=== PATIENT | male | born 1965 | race African-American/Black ===

== ENCOUNTER 2017-09-06 04:06 | Emergency (ER) | payer SELFPAY ==
[2017-09-06] MEDS ORDERED: Ibuprofen 800 MG TAB ONE (04:30)
[2017-09-06 04:41] LABS: #Lymphocytes 0.5 thou/uL (1.20-3.40); #Monocytes 0.7 thou/uL (0.11-0.59); #Neutrophils 6.9 thou/uL (1.40-6.50); %Basophils 0.4 % (0.0-1.0); %Eosinophils 0.5 % (0.0-10.0); %Lymphocytes 6.7 % (21.0-51.0); %Monocytes 8.4 % (0.0-10.0); %Neutrophils 84.1 % (42.0-75.0); Hemoglobin 14.4 g/dL (14.0-18.0); Mean Corpuscular HGB CONC 34.1 g/dL (32.0-36.0); Mean Corpuscular Hemoglobin 34.5 pg (27.0-31.0); Mean Platelet Volume 6.9 fL (7.4-10.4); Platelet Count 203 thou/uL (130-400); RBC Distribution Width 11.1 % (11.5-14.5); Red Blood Cell (RBC) Count 4.16 mill/uL (4.70-6.10); White Blood Cell (WBC) Count 8.2 thou/uL (4.8-10.8)
[2017-09-06 05:19] LABS: ALT (SGPT) 13 U/L (8-55); AST (SGOT) 17 U/L (5-34); Albumin 4.1 g/dL (3.5-5.0); Alkaline Phosphatase 65 U/L (40-150); Anion Gap 13 mmol/L (10-20); BUN (Urea Nitrogen) 16 mg/dL (8.4-25.7); Bilirubin, Total 0.8 mg/dL (0.2-1.2); Calc. Creatinine Clearance 0 mL/min (70-130); Calcium 9.1 mg/dL (7.8-10.44); Carbon Dioxide 22 mmol/L (22-29); Chloride 105 mmol/L (98-107); Estimated GFR-MDRD Greater than 90; Glucose 115 mg/dL (70-105); Potassium 3.8 mmol/L (3.5-5.1); Protein, Total 7.1 g/dL (6.0-8.3); Sodium 136 mmol/L (136-145)
[2017-09-06 05:24] LABS: CKMB 1.1 ng/mL (0-6.6); Troponin I 0.025 ng/mL (< 0.028)
--- NOTE | 2017-09-06 08:18 | RAD ---
PORTABLE CHEST ONE VIEW: 09/06/2017 at 4:43 a.m. HISTORY: Chest pain. FINDINGS: Comparison is made with the exam of 04/08/2015. The heart size is normal. The lungs are expanded without focal areas of consolidation, pneumothorax, or pleural effusions. No degenerative changes in the spine. IMPRESSION: No radiographic evidence of acute cardiopulmonary process. POS: [facility]
--- NOTE | 2017-09-06 08:28 | RAD ---
LEFT WRIST 3 VIEWS: Date: 09/06/17 HISTORY: 52-year-old female with history of injury to left wrist after being pecked by a chicken and developed a fever up to 103. FINDINGS: There is degenerative change, particularly involving the distal radial ulnar joint. There is abnormal widening of the scapholunate space, evidence for scapholunate disassociation secondary to scapholuna te ligament injury. No acute fracture or dislocation. No overt foreign body. 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 No fo reign body. No acute fracture or dislocation. POS: [facility]
== END 2017-09-06 07:25 | disposition home or self-care (01) ==
LOC: ERS 04:06
DX: R07.9 Chest pain, unspecified (principal); B34.9 Viral infection, unspecified
CPT/HCPCS: 36415; 71045; 80053; 82553; 84484; 85025; 93005; 96360; 99406

== ENCOUNTER 2019-10-07 16:57 | Observation (INO) | payer SELFPAY ==
[2019-10-07] MEDS ORDERED: Lorazepam 2 MG/ML VIAL ONE (17:20)
[2019-10-07] MEDS ORDERED: Naloxone HCl 2 mg/2 ml Syringe ONE (17:20)
[2019-10-07 17:28] LABS: Hemoglobin 16.5 g/dL (14.0-18.0); Mean Corpuscular HGB CONC 35.4 g/dL (32.0-36.0); Mean Platelet Volume 7.2 fL (7.4-10.4); Platelet Count 233 thou/uL (130-400); RBC Distribution Width 11.2 % (11.5-14.5); Red Blood Cell (RBC) Count 4.59 mill/uL (4.70-6.10); White Blood Cell (WBC) Count 7.4 thou/uL (4.8-10.8)
[2019-10-07 17:43] LABS: Acetaminophen Less than 6.0 mcg/mL (10.0-30.0); Alcohol 104 mg/dL (Less than 10); Salicylate Less than 8.0 mg/dL (15.0-30.0)
[2019-10-07 17:44] LABS: ALT (SGPT) 18 U/L (8-55); AST (SGOT) 31 U/L (5-34); Albumin 4.4 g/dL (3.5-5.0); Alkaline Phosphatase 81 U/L (40-110); Anion Gap 15 mmol/L (10-20); BUN (Urea Nitrogen) 10 mg/dL (8.4-25.7); Bilirubin, Total 1.1 mg/dL (0.2-1.2); Calc. Creatinine Clearance 0 mL/min (70-130); Calcium 9.3 mg/dL (7.8-10.44); Carbon Dioxide 24 mmol/L (22-29); Chloride 99 mmol/L (98-107); Estimated GFR-MDRD 72; Glucose 114 mg/dL (70-105); Lipase 16 U/L (8-78); Potassium 3.2 mmol/L (3.5-5.1); Protein, Total 7.4 g/dL (6.0-8.3); Sodium 135 mmol/L (136-145)
[2019-10-07 17:50] LABS: Band 1 % (5-11); Eosinophils 1 % (0-10); Lymphocytes 39 % (21-51); MDiff Complete? YES; Monocytes 6 % (0-10); Neutrophil 49 % (42-75); Platelet Morphology Comment Appears Adequate; RBC Morphology Normal; Reactive Lymphocytes 3 % (0-10)
[2019-10-07 18:06] LABS: CKMB 4.4 ng/mL (0-6.6)
[2019-10-07 18:18] LABS: Bilirubin Negative (Negative); Blood, Urine Negative (Negative); Clarity Clear (Clear); Glucose, Urine (Dipstick) Normal (Negative); Leukocyte Negative Leu/uL (Negative); Nitrite Negative (Negative); Protein, Urine (Dipstick) Negative (Neg-Trace); Urobilinogen Normal mg/dL (Less than 2)
[2019-10-07 18:31] LABS: Cocaine Metabolite Screen Detected (NotDetected); Medtox Reader # READER 1
[2019-10-07 18:32] LABS: Amphetamine Not Detected (NotDetected); Barbiturates Screen Not Detected (NotDetected); Benzodiazepine Screen Not Detected (NotDetected); Medtox Control Line Valid? VALID (VALID); Methadone Not Detected (NotDetected); Methamphetamine Not Detected (NotDetected); Opiate Screen Not Detected (NotDetected); Oxycodone Screen Not Detected (NotDetected); Phencyclidine (PCP) Not Detected (NotDetected); THC/Cannabinoid Screen Not Detected (NotDetected); Tricyclic Screen Not Detected (NotDetected)
--- NOTE | 2019-10-07 18:38 | CT ---
CT BRAIN NONCONTRAST: DATE: 10/07/2019 HISTORY: 54-year-old male with altered mental status FINDINGS: There is no evidence of acute intra-axial or extra-axial hemorrhage. There is no midline shift or any other mass effect. There is no extra-axial fluid collection. There is no evidence of obstructive hydrocephalus. Calvarium is intact. IMPRESSION: No acute intracranial findings.
--- NOTE | 2019-10-07 18:43 | RAD ---
Chest AP view INDICATION: Altered mental status and history of allergic reaction COMPARISON: September 06, 2017 FINDINGS: Lungs: The lungs are clear Cardiac silhouette: Stable mild cardiomegaly Pulmonary vasculature: Normal Pleural spaces: No pleural effusion or pneumothorax is demonstrated. Upper abdomen: No abnormality seen. Osseous structures: No acute osseous abnormality. Additional findings: None. IMPRESSION: Stable mild cardiomegaly. No acute abnormality.
[2019-10-07] MEDS ORDERED: Acetaminophen 650 MG Suppository PR PRN (19:37)
[2019-10-07] MEDS ORDERED: Ondansetron PF 4 MG/2 ML Vial IVP PRN (19:37)
[2019-10-07] MEDS ORDERED: Labetalol HCl 100 MG/20 ML VIAL SLOW IVP PRN (19:41)
[2019-10-07] MEDS ORDERED: Lorazepam 2 MG/ML VIAL SLOW IVP PRN (19:42)
[2019-10-07] MEDS ORDERED: Aspirin 300 MG Suppository ONE (19:59)
[2019-10-07 20:54] LABS: Troponin I 0.044 ng/mL (< 0.028)
[2019-10-07 21:31] VITALS: BMI 22.2
[2019-10-07] MEDS: Multivitamins, Adult 10 ML, Folic Acid 1 MG, Thiamine HCl 100 MG in Dextrose 5 %-0.45 %... IV SCH (22:04)
--- NOTE | 2019-10-07 23:11 | HP ---
CHIEF COMPLAINT: Altered mentation. HISTORY OF PRESENT ILLNESS: A 54-year-old male with a history of asthma, presenting with altered mentation. According to his mother, the patient went with his friends for barbecue. He came home and after a while, he mentioned to his mother that he is not able to see clearly and he slumped, asked her to call 911. The EMS was called, arrived at this site, felt that he had some reaction "anaphylactic reaction type " given albuterol, epi, some facial swelling and shortness of breath, but they did not notice any rash, stridor, or wheezing. On arrival to the ER, patient was still somnolent. His vitals remained stable. His screening evaluation with CT head is negative. Labs are quite unremarkable. UDS positive for cocaine and blood alcohol level of 104. No aspirin or Tylenol on board. He had mild hypokalemia. Based on his mother, he used crack cocaine, but does not snort cocaine or use injection. He does not use any other drugs per mother. REVIEW OF SYSTEMS: Not obtainable. ALLERGIES: HE IS ALLERGIC TO BUTORPHANOL TARTRATE. PAST MEDICAL HISTORY: Asthma. MEDICATIONS: 1. Thiamine 100 mg daily. 2. Protonix 40 mg daily. 3. Meclizine as needed. 4. Folic acid 1 mg daily. 5. Albuterol 2 puffs q.4 hours p.r.n. 6. Beclomethasone 80 mcg (QVAR) 3 puffs twice a day. SOCIAL HISTORY: The patient smokes daily cigarettes. Alcohol use daily. Often , he uses crack cocaine. PHYSICAL EXAMINATION: VITAL SIGNS: He is afebrile, normotensive. His vital signs are stable. GENERAL: He appears somnolent. He has a sinus rhythm on the shelter monitor. He is actually snoring deeply. The deep palpation still not able to wake him up. His mother states that he is a heavy sleeper, hard to wake him up even under normal condition. HEENT: His left pupil is 3 mm dilated versus 2 mm in the right pupil. CARDIOVASCULAR: Regular rate and rhythm without murmurs, rubs, or gallops. LUNGS: Clear to auscultation bilaterally without wheezing, rales, or rhonchi. ABDOMEN: Soft, nontender, nondistended. Good bowel sounds. EXTREMITIES: No pitting edema. No rash. I did not appreciate any facial swelling. NEUROLOGIC: He is only responding for a very deep sternal rub. LABORATORY DATA: CBC in the normal range. Chemistry panel, potassium 3.2. Other than that, his CMP in the normal range. TSH 0.5, lipase 16. Troponin 0.03. CT head negative. IMPRESSION AND PLAN: A 54-year-old male presenting with, 1. Metabolic encephalopathy possibly secondary to intoxication. 2. Cocaine abuse. 3. Alcohol intoxication. 4. I believe his mentation changes probably multifactorial with both alcohol as well as cocaine. His vitals are stable. He does not have any elevated blood pressure and I believe his troponin probably reflective of cocaine use. We will monitor him closely for now. Consideration for lumbar puncture, he is on the low threshold currently. However, if clinical condition changes, we will consider doing the lumbar puncture. 5. Mainly supportive measures with a banana bag, potassium supplements. Labetalol IV p.r.n. if his blood pressure is systolic above 180. 6. Rest of the management based on the clinical course. Job ID: [id number] [facility]PITALAury
[2019-10-08] LABS: Troponin I 0.034 ng/mL (< 0.028)
[2019-10-08 04:39] LABS: #Lymphocytes 0.5 thou/uL (1.20-3.40); #Monocytes 0.1 thou/uL (0.11-0.59); #Neutrophils 3.9 thou/uL (1.40-6.50); %Basophils 0.3 % (0.0-1.0); %Eosinophils 0.1 % (0.0-10.0); %Lymphocytes 11.9 % (21.0-51.0); %Monocytes 1.2 % (0.0-10.0); %Neutrophils 86.5 % (42.0-75.0); Hemoglobin 15.3 g/dL (14.0-18.0); Mean Corpuscular HGB CONC 35.3 g/dL (32.0-36.0); Mean Corpuscular Hemoglobin 35.7 pg (27.0-31.0); Mean Platelet Volume 7.2 fL (7.4-10.4); Platelet Count 185 thou/uL (130-400); RBC Distribution Width 11.1 % (11.5-14.5); Red Blood Cell (RBC) Count 4.28 mill/uL (4.70-6.10); White Blood Cell (WBC) Count 4.5 thou/uL (4.8-10.8)
[2019-10-08 04:57] LABS: Anion Gap 12 mmol/L (10-20); BUN (Urea Nitrogen) 12 mg/dL (8.4-25.7); Calc. Creatinine Clearance 89 mL/min (70-130); Calcium 8.8 mg/dL (7.8-10.44); Carbon Dioxide 23 mmol/L (22-29); Chloride 104 mmol/L (98-107); Estimated GFR-MDRD Greater than 90; Glucose 163 mg/dL (70-105); Potassium 4.5 mmol/L (3.5-5.1); Sodium 134 mmol/L (136-145)
[2019-10-08] MEDS: Acetaminophen 325 MG TAB PO PRN (10:50)
[2019-10-08] MEDS ORDERED: Aspirin Chewable 81 MG TAB PO SCH (11:45)
--- NOTE | 2019-10-08 14:02 | PDOC.HOSPP ---
- Subjective Encounter Date: 10/08/19 Encounter Time: 10:45 Subjective: he is more awake and conversing and states that his right side weak; mom at bedside. had his pO intake this am. - Objective Vital Signs & Weight: Vital Signs (12 hours) Temp Pulse Resp BP BP Pulse Ox 10/08/19 11:55 65 18 115/56 L 92 L 10/08/19 07:46 97.5 F L 71 16 138/72 92 L 10/08/19 04:26 98.4 F 80 16 123/62 94 L Weight Weight 137 lb 12.8 oz I&O: 10/07/19 10/08/19 10/09/19 06:59 06:59 06:59 Intake Total 1037 Balance 1037 Result Diagrams: 10/08/19 04:23 10/08/19 04:23 Hospitalist ROS - Medication Medications: Active Medications Generic Name Dose Route Start Last Admin Trade Name Freq PRN Reason Stop Dose Admin Acetaminophen 650 mg 10/07/19 19:37 10/08/19 10:50 Tylenol PO 650 mg Q4H PRN Administration Headache/Fever/Mild Pain (1-3) Multivitamins 10 ml/ Folic 1,011.2 mls @ 100 mls/hr 10/07/19 22:00 10/07/19 22:04 Acid 1 mg/ Thiamine HCl 100 mg IV 10/10/19 08:07 1,011.2 mls / Dextrose/Sodium Chloride Q24HR@2200 JOHN Administration - Exam General Appearance: NAD, awake alert Eye: PERRL ENT: normocephalic atraumatic Neck: supple Heart: RRR Respiratory: CTAB, normal chest expansion Gastrointestinal: soft, normal bowel sounds Neurological: cranial nerve grossly intact Neurological - other findings: right arm -- he able to lift but not above head, 4/5 RUE&RLE vs. Left 5/5 Hosp A/P - Plan Toxic metabolic encephlaopathy -poss drug induced -resolved Cocaine abuse Alcohol intoxication Right side weakness -very mild -may be d/t stilll lingering toxic effect of illicit drugs vs.. TIA vs..stroke - Ct head neg - getting MRI and echo -PT consult placed.
[2019-10-08 14:49] LABS: Cardiac Risk 3.2 (Less than 4.5)
[2019-10-08] MEDS ORDERED: Magnevist 469MG/ML 20 ML VIAL ONE ×2 (15:02)
--- NOTE | 2019-10-08 16:17 | MRI ---
MR angiogram neck without and with gadolinium contrast HISTORY: Right-sided weakness. Vascular disease. FINDINGS: There is bovine origin of the great vessels at the aortic arch with good flow into each car otid and vertebral system. Each vertebral and carotid artery is widely patent. No focal plaque evident. Each carotid bifurcation has a normal appearance. IMPRESSION: Normal exam. No evidence of significant stenosis or plaque.
--- NOTE | 2019-10-08 16:24 | MRI ---
MRI brain without and with gadolinium contrast HISTORY: Right-sided weakness. FINDINGS: There is no evidence of acute intracranial hemorrhage or infarct. The ventricles appear nor mal in size, shape and position. There is no mass effect, shift midline structures, or abnormal areas of contrast enhancement. IMPRESSION: No acute intracranial abnormalities are demonstrated.
--- NOTE | 2019-10-08 17:15 | MRI ---
MRA HEAD NONCONTRAST: DATE: 10-08-2019 HISTORY: 54-year-old male with right upper extremity weakness. TECHNIQUE: 3D [id number] MRA acquired in multiple axial slabs through the [place]. Source images an d 3D MIP reconstructions evaluated. FINDINGS: Please note that an MRA of the head is considered incomplete without an accompanying standard MRI of the brain. M1 segments of bilateral MCAs, A1 and A2 segments of bilateral ACAs, bilateral intracranial vertebral s, basilar, bilateral P1 and P2 segments of manager operations research, bilateral superior cerebellasr, and bilateral PICA' s, demonstrate no high grade short segment focal stenosis or occlusion. No aneurysm larger than 3 mm identified. IMPRESSION: Negative. POS: [facility]
[2019-10-08] MEDS: Multivitamins, Adult 10 ML, Folic Acid 1 MG, Thiamine HCl 100 MG in Dextrose 5 %-0.45 %... IV SCH (21:30)
[2019-10-08] MEDS: Atorvastatin Calcium 20 MG TAB PO SCH (21:30)
[2019-10-09] MEDS: Aspirin Chewable 81 MG TAB PO SCH (08:53)
--- NOTE | 2019-10-09 13:18 | PDOC.HOSPP ---
- Subjective Encounter Date: 10/09/19 Encounter Time: 10:50 Subjective: pt still not actively conversing, states because he just had breakfast, he is taking a nap. later on pt saying stomach hurts and pain medication. he feels he is still weak on the right side and wants rehab. talk to CM and will place PT consult. he is uninsured, not able to get into rehab as inpt. - Objective Vital Signs & Weight: Vital Signs (12 hours) Temp Pulse Resp BP BP Pulse Ox 10/09/19 11:17 98.1 F 65 14 114/54 L 97 10/09/19 07:55 97.6 F 75 14 118/61 96 10/09/19 03:22 98.8 F 61 16 119/63 97 Weight Weight 137 lb 12.8 oz I&O: 10/08/19 10/09/19 10/10/19 06:59 06:59 06:59 Intake Total 1037 980 Balance 1037 980 Result Diagrams: 10/08/19 04:23 10/08/19 04:23 Hospitalist ROS - Medication Medications: Active Medications Generic Name Dose Route Start Last Admin Trade Name Freq PRN Reason Stop Dose Admin Acetaminophen 650 mg 10/07/19 19:37 10/08/19 10:50 Tylenol PO 650 mg Q4H PRN Administration Headache/Fever/Mild Pain (1-3) Aspirin 81 mg 10/09/19 09:00 10/09/19 08:53 Aspirin Chewable PO 81 mg DAILY JOHN Administration Atorvastatin Calcium 20 mg 10/08/19 21:00 10/08/19 21:30 Lipitor PO 20 mg HS JOHN Administration Multivitamins 10 ml/ Folic 1,011.2 mls @ 100 mls/hr 10/07/19 22:00 10/08/19 21:30 Acid 1 mg/ Thiamine HCl 100 mg IV 10/10/19 08:07 1,011.2 mls / Dextrose/Sodium Chloride Q24HR@2200 JOHN Administration Ondansetron HCl 4 mg 10/07/19 19:37 10/08/19 16:22 Zofran IVP 4 mg Q6H PRN Administration Nausea/Vomiting Pantoprazole Sodium 40 mg 10/09/19 09:00 10/09/19 08:53 Protonix PO 40 mg DAILY JOHN Administration - Exam General Appearance: NAD, awake alert Eye: PERRL ENT: normocephalic atraumatic Neck: supple Heart: RRR Respiratory: CTAB, normal chest expansion Gastrointestinal: soft, normal bowel sounds Neurological: cranial nerve grossly intact, no focal deficits Hosp A/P - Plan Toxic metabolic encephlaopathy -poss drug induced -resolved Cocaine abuse Alcohol intoxication Right side weakness -very mild -may be d/t stilll lingering toxic effect of illicit drugs vs.. TIA vs..stroke - Ct head neg - getting MRI and echo -PT consult placed. MRI and echo -- no abnormality -will fw with CK and TSH levels. -- his weakness likley drug use related than stroke as etiology. after PT evaluation, he will be discharged. not sure with lack of insurance, he is going to go to inpt rehab.
[2019-10-09] MEDS: Atorvastatin Calcium 20 MG TAB PO SCH (19:38)
[2019-10-09] MEDS: Acetaminophen 325 MG TAB PO PRN (19:39)
[2019-10-09] MEDS: Multivitamins, Adult 10 ML, Folic Acid 1 MG, Thiamine HCl 100 MG in Dextrose 5 %-0.45 %... IV SCH (22:03)
[2019-10-10] MEDS: Acetaminophen 325 MG TAB PO PRN ×2 (00:57→10:15)
[2019-10-10] MEDS: Aspirin Chewable 81 MG TAB PO SCH (09:11)
[2019-10-10 11:39] VITALS: BP 119/58; TEMP 97.7
--- NOTE | 2019-10-11 14:31 | DIS ---
DATE OF ADMISSION: 10/07/2019 DATE OF DISCHARGE: 10/10/2019 DISCHARGE DIAGNOSES: 1. Toxic metabolic encephalopathy secondary to alcohol and cocaine abuse. 2. Cocaine abuse. 3. Alcohol intoxication. 4. Right-sided weakness and malingering cannot be ruled out completely. 5. Abnormal troponin secondary to metabolic mismatch, demand ischemia, not due to acute coronary syndrome. It is due to cocaine abuse. DISCHARGE MEDICATIONS: 1. Albuterol 2 puff inhalation as needed. 2. Beclomethasone three puffs twice a day. PHYSICAL EXAMINATION: VITAL SIGNS: On the day of discharge, temperature 97.8, pulse 62, blood pressure 118/55, saturating 100% on room air. GENERAL: The patient is alert, oriented. He has no acute complaints this morning. Participating actively with Physical Therapy and walking with a walker. CARDIOVASCULAR: Regular rate and rhythm without murmurs, rubs, or gallops. LUNGS: Clear to auscultation bilaterally without wheezing, rales, or rhonchi. ABDOMEN: Soft, nontender, and nondistended. Good bowel sounds. EXTREMITIES: Without any pitting edema. Even though he had some weakness on the right side during my exam, I did not appreciate much. It is 4/5 in the right upper extremity, as well as lower extremity. Otherwise, he is ambulating without much distress. HOSPITAL COURSE: Please review the history and physical and daily progress notes for more details. A 54-year-old male without significant past medical history, had altered mentation and brought in for further evaluation. His gave me enough history. He slept throughout the day and the next day for the most part. The patient's stated that he does (heavy sleeping). During my exam, he did not have any focal deficits. He was complaining of right-sided weakness. MRI and MRA did not show any abnormality. Echo with normal EF. No valvular abnormalities noted. His TSH is in the normal range. His creatine-kinase was 112. The patient did have mild elevated troponin of 0.04 and 0.03 and that is probably due to type 2 metabolic mismatch, demand ischemia with cocaine abuse. The patient's right-sided weakness seems to be quite subjective and malingering. Etiology for the most part, both with my clinical evaluation as well as physical therapy and nursing evaluation. The patient is hemodynamically stable and clinically sound enough to be discharged home today. DISCHARGE INSTRUCTION: Activity as tolerated. Healthy heart diet. Counseling on alcohol abstinence and cocaine abuse has been done. Follow up with primary care physician in one week. TIME SPENT: Discharge time took over 30 minutes. Job ID: [id number]
== END 2019-10-10 11:58 | disposition home or self-care (01) ==
LOC: ERS 16:57 → 2NO 19:45
PROVIDERS: ADMIT Internal Medicine; ATTEND Internal Medicine
DX: F10.129 Alcohol abuse with intoxication, unspecified (principal); F14.10 Cocaine abuse, uncomplicated; G92 Toxic encephalopathy; R29.898 Other symptoms and signs involving the musculoskeletal system; R79.89 Other specified abnormal findings of blood chemistry; I24.8 Other forms of acute ischemic heart disease; Z79.899 Other long term (current) drug therapy
CPT/HCPCS: 36415; 70450; 70544; 70549; 70553; 71045; 80048; 80053; 80061; 80306; 80307; 81003; 82140; 82550; 82553; 83690; 84443; 84484; 85025; 93005; 93306; 96361; 96365; 96366; 96374; 96375; A9579; G0378; J2060; J2310; J2405; J3411; J7042

== ENCOUNTER 2022-11-14 07:33 | Emergency (ER) | payer SELFPAY ==
[2022-11-14] MEDS ORDERED: Bacitracin 1 PK ONE (08:19)
== END 2022-11-14 08:34 ==
LOC: ERS 07:33
DX: S11.91XA Laceration without foreign body of unspecified part of neck, initial encounter (principal); J45.909 Unspecified asthma, uncomplicated; F17.210 Nicotine dependence, cigarettes, uncomplicated; W26.0XXA Contact with knife, initial encounter
CPT/HCPCS: 12001; 93005

== ENCOUNTER 2023-05-06 19:27 | Emergency (ER) | payer OTHER, SELFPAY ==
[2023-05-06] MEDS ORDERED: Acetaminophen 500 MG TAB ONE (20:11)
== END 2023-05-06 20:28 ==
LOC: ERS 19:27 → EEVIPCON 19:27 → ERS 20:28
DX: S50.01XA Contusion of right elbow, initial encounter (principal); J45.909 Unspecified asthma, uncomplicated; F17.210 Nicotine dependence, cigarettes, uncomplicated; W19.XXXA Unspecified fall, initial encounter; Y93.67 Activity, basketball